=== PATIENT | male | born 2000 | race African-American/Black ===

== ENCOUNTER 2023-01-08 22:56 | Emergency (ER) | payer OTHER ==
[~2023-01-08] VITALS: Ht 177.8 cm; Wt 87.7 kg
[2023-01-09 02:33] LABS: BASO % 0.3 % (0.0-1.0); HEMATOCRIT 47.8 % (42.0-52.0); LYMPH # 1.3 10^3/uL (1.5-5.0); LYMPH % 11.9 % (24.0-44.0); MEAN CORPUSCULAR HGB CONC 33.5 g/dl (32.0-36.5); MEAN CORPUSCULAR VOLUME 89.5 fl (80.0-96.0); MONO # 0.5 10^3/uL (0.0-0.8); MONO % 4.5 % (2.0-8.0); NEUTROPHILS # 8.8 10^3/uL (1.5-8.5); PLATELET COUNT, AUTOMATED 209 10^3/uL (150-450); RED BLOOD COUNT 5.34 10^6/uL (4.30-6.10); WHITE BLOOD COUNT 10.6 10^3/uL (4.0-10.0)
[2023-01-09 03:00] LABS: RSV AMPLIFICATION NEGATIVE (NEGATIVE)
[2023-01-09 03:01] LABS: BLOOD UREA NITROGEN 10 MG/DL (9-23); CALCIUM LEVEL 9.2 MG/DL (8.5-10.1); CARBON DIOXIDE LEVEL 24 MMOL/L (20-31); CHLORIDE LEVEL 106 MMOL/L (98-107); CREATININE FOR GFR 0.96 MG/DL (0.70-1.30); GLOMERULAR FILTRATION RATE > 60.0 (>60); GLUCOSE, FASTING 85 MG/DL (60-100); POTASSIUM SERUM 4.1 MMOL/L (3.5-5.1); SODIUM LEVEL 140 MMOL/L (136-145)
[2023-01-09 08:15] VITALS: O2SAT 100
[2023-01-09 08:30] VITALS: BP 126/79; TEMP 97.8
== END 2023-01-09 08:46 | disposition short-term general hospital (02) ==
LOC: M ED 22:56
DX: S02.31XA Fracture of orbital floor, right side, initial encounter for closed fracture (principal); H05.89 Other disorders of orbit; Y92.9 Unspecified place or not applicable; Y04.8XXA Assault by other bodily force, initial encounter